=== PATIENT | female | born 2000 | race Caucasian/White ===

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

== ENCOUNTER → 2019-03-14 | Outpatient (CLI) | payer OTHER ==
[2019-03-14 13:26] LABS: HCT 40.6 % (34.0-46.0); HGB 13.3 gm/dL (11.4-16.0); MCHC 32.6 g/dL (31.0-37.0); MCV 97.9 fL (80.0-100.0); Mean Platelet Volume 7.7; Platelet Count 267 k/uL (150-450); RBC 4.15 m/uL (3.80-5.40); RDW 12.3 % (11.5-15.5); WBC 8.8 k/uL (4.0-11.0)
--- NOTE | 2019-03-14 13:26 | US ---
EXAMINATION TYPE: US pelvic complete DATE OF EXAM: 03/14/2019 COMPARISON: US CLINICAL HISTORY: N92.1 excessive and frequent menstruation with. Pt states abnormal, heavy and frequ ent vaginal bleeding TECHNIQUE: Transabdominal (TA). Transabdominal sonographic images of the pelvis were acquired. Date of LMP: 03/11/2019 EXAM MEASUREMENTS: Uterus: 8.6 x 3.9 x 4.0 cm Endometrial Stripe: 0.4 cm Right Ovary: 3.0 x 2.8 x 1.6 cm Left Ovary: 3.0 x 3.7 x 1.8 cm 1. Uterus: Anteverted wnl 2. Endometrium: wnl 3. Right Ovary: wnl 4. Left Ovary: Dominant follicle= 1.7 cm 5. Bilateral Adnexa: wnl 6. Posterior cul-de-sac: wnl IMPRESSION: 1. 1.7 cm left ovarian cyst.
[2019-03-14 13:51] LABS: T4, Free (Free Thyroxine) 1.22 ng/dL (0.78-2.19)
== END | disposition home or self-care (01) ==
LOC: RADUSWWP 12:28
PROVIDERS: ATTEND Obstetrics & Gynecology
DX: N83.202 Unspecified ovarian cyst, left side (principal); Z13.29 Encounter for screening for other suspected endocrine disorder; N92.1 Excessive and frequent menstruation with irregular cycle
CPT/HCPCS: 36415; 76856; 84439; 84443; 84479; 85027

== ENCOUNTER 2019-03-15 17:11 | Emergency (ER) | payer OTHER ==
[2019-03-15 17:17] VITALS: BP 103/62; PULSE 76; RESP 20; TEMP 98.2
[2019-03-15] MEDS ORDERED: traMADol 50 MG TAB PO STA (18:00)
--- NOTE | 2019-03-15 18:02 | ED ---
ENT HPI - General Chief complaint: Dental/Oral Stated complaint: Dental pain Time Seen by Provider: 03/15/19 17:28 Source: patient Mode of arrival: ambulatory Limitations: no limitations - History of Present Illness Initial comments: Patient is a 18-year-old female presenting to emergency Department with a chief complaint of dental pain. Patient reports yesterday she was using whitening strips that she was supposed to keep on for 30 minutes. However, she fell asleep and they were on for approximately 10 hours. Patient reports after she removes them she developed dental pain that is exacerbated whenever she is taking a breath. Patient also reports some pain whenever she is drinking cold or hot liquids. Patient reports taking [id number] ibuprofen with minimal improvement. Patient states she went to the primary care office who prescribed her tramadol but she has not picked it up from the pharmacy. Patient reports that she has an appointment scheduled with a dentist. - Related Data Home Medications Medication Instructions Recorded Confirmed Pnv No.95/Ferrous Fum/Folic AC 1 tab PO HS 11/10/17 03/30/18 [ Multivitamin Tablet] Previous Rx's Medication Instructions Recorded Oseltamivir [Tamiflu] 75 mg PO Q12HR #10 cap 05/06/18 Cephalexin [Keflex] 500 mg PO Q12HR 10 Days cap 07/04/18 Allergies Allergy/AdvReac Type Severity Reaction Status Date / Time codeine AdvReac Abdominal Verified 03/15/19 17:18 Pain Review of Systems ROS Statement: Those systems with pertinent positive or pertinent negative responses have been documented in the HPI. ROS Other: All systems not noted in ROS Statement are negative. Past Medical History Past Medical History: No Reported History History of Any Multi-Drug Resistant Organisms: None Reported Past Surgical History: Section Additional Past Surgical History / Comment(s): WISDOM TEETH, STATES HAD "DRAINAGE OF TONSIL" Past Anesthesia/Blood Transfusion Reactions: No Reported Reaction Past Psychological History: Depression Smoking Status: Current every day smoker Past Alcohol Use History: None Reported Past Drug Use History: None Reported General Exam Limitations: no limitations General appearance: alert, in no apparent distress Head exam: Present: atraumatic, normocephalic, normal inspection Eye exam: Present: normal appearance, PERRL, EOMI Pupils: Present: normal accommodation ENT exam: Present: normal exam, normal oropharynx (No oral lesions. No signs of a dental infection.), mucous membranes moist, TM's normal bilaterally, normal external ear exam Neck exam: Present: normal inspection, full ROM Respiratory exam: Present: normal lung sounds bilaterally Cardiovascular Exam: Present: regular rate, normal rhythm, normal heart sounds Extremities exam: Present: normal inspection, full ROM Back exam: Present: normal inspection, full ROM Neurological exam: Present: alert, oriented X3 Psychiatric exam: Present: normal affect, normal mood Skin exam: Present: warm, dry, intact, normal color Course Vital Signs 03/15/19 17:14 Temperature 98.2 F Pulse Rate 76 Respiratory 20 Rate Blood Pressure 103/62 O2 Sat by Pulse 99 Oximetry Medical Decision Making - Medical Decision Making Patient is a 18-year-old female presenting to emergency Department with chief complaint of dental pain. Physical examination is unremarkable. Patient given a single dose of tramadol in the ED. Patient has a prescription for tramadol that she has not picked up yet. Patient also advised to use Sensodyne toothpaste for sensitive teeth. Strict return parameters were thoroughly discussed the patient was understanding and agreeable. Case discussed with physician. Disposition Clinical Impression: Pain, dental Disposition: HOME SELF-CARE Condition: Stable Instructions (If sedation given, give patient instructions): Toothache (ED) Additional Instructions: Please follow up with a dentist. use [id number] Sensodyne. Please return to emergency department if symptoms worsen. Is patient prescribed a controlled substance at d/c from ED?: No Referrals: Waqas See MD [Primary Care Provider] - 1-2 days Time of Disposition: 18:02
== END 2019-03-15 18:21 | disposition home or self-care (01) ==
LOC: EC 17:11
DX: K08.89 Other specified disorders of teeth and supporting structures (principal); F17.200 Nicotine dependence, unspecified, uncomplicated; Z88.5 Allergy status to narcotic agent
CPT/HCPCS: 99282

== ENCOUNTER 2019-11-17 16:17 | Emergency (ER) | payer OTHER ==
[2019-11-17] MEDS ORDERED: NA PHOS,M-B/NA PHOS,DI-BA 133 ML ENEMA RECTAL STA (17:01)
--- NOTE | 2019-11-17 17:03 | ED ---
Abdominal Pain HPI - General Chief Complaint: Abdominal Pain Stated Complaint: Female Time Seen by Provider: 11/17/19 16:32 Source: patient Mode of arrival: ambulatory Limitations: no limitations - History of Present Illness Initial Comments: Patient is a 19-year-old female presenting to the emergency Department with complaints of constipation for the last 3 days. Patient states she was trying to disimpact herself and thinks she might have cut herself with her long nails. Patient states when she tried to have a bowel movement about a half an hour later she noticed a little bit of blood in the toilet. Patient got concerned and went to urgent care. Urgent care stating that she needed to the ER for further evaluation. She states she takes Percocets and typically deals with constipation. She states she is not having active bleeding, she has some little bit of soreness but no significant amount of pain. Denies any fevers or chills. She has no further complaints at this time. - Related Data Home Medications Medication Instructions Recorded Confirmed Pnv No.95/Ferrous Fum/Folic AC 1 tab PO HS 11/10/17 03/30/18 [ Multivitamin Tablet] Previous Rx's Medication Instructions Recorded Oseltamivir [Tamiflu] 75 mg PO Q12HR #10 cap 05/06/18 Cephalexin [Keflex] 500 mg PO Q12HR 10 Days cap 07/04/18 Allergies Allergy/AdvReac Type Severity Reaction Status Date / Time codeine AdvReac Abdominal Verified 11/17/19 16:26 Pain Review of Systems ROS Statement: Those systems with pertinent positive or pertinent negative responses have been documented in the HPI. ROS Other: All systems not noted in ROS Statement are negative. Past Medical History Past Medical History: No Reported History History of Any Multi-Drug Resistant Organisms: None Reported Past Surgical History: Section Additional Past Surgical History / Comment(s): WISDOM TEETH, STATES HAD "DRAINAGE OF TONSIL" Past Anesthesia/Blood Transfusion Reactions: No Reported Reaction Past Psychological History: Depression Smoking Status: Current every day smoker Past Alcohol Use History: None Reported Past Drug Use History: Prescription Drug Abuse General Exam - General Exam Comments Initial Comments: GENERAL: Patient is well-developed and well-nourished. Patient is nontoxic and in no acute distress. HEAD: Atraumatic, normocephalic. EYES: Pupils equal round and reactive to light, extraocular movements intact, sclera anicteric, conjunctiva are normal. Eyelids were unremarkable. ENT: TMs normal, nares patent, oropharynx clear without exudates. Moist mucous membranes. NECK: Normal range of motion, supple without lymphadenopathy or JVD. LUNGS: Unlabored respirations. Breath sounds clear to auscultation bilaterally and equal. No wheezes rales or rhonchi. HEART: Regular rate and rhythm without murmurs, rubs or gallops. ABDOMEN: Soft, nontender, normoactive bowel sounds. No guarding, no rebound. No masses appreciated. MUSCULOSKELETAL: Normal extremities with adequate strength and normal range of motion, no pitting or edema. No clubbing or cyanosis. NEUROLOGICAL: Patient is alert and oriented x 3. Motor and sensory are also intact. Cranial nerves II through XII grossly intact. Symmetrical smile. Normal speech, normal gait. PSYCH: Normal mood, normal affect. SKIN: Warm, Dry, normal turgor, no rashes or lesions noted. Limitations: no limitations Rectal exam: Present: normal inspection, hemorrhoids (Small external hemorrhoid), other (No active bleeding.) Course Vital Signs 11/17/19 11/17/19 16:22 17:17 Temperature 98.2 F 98.3 F Pulse Rate 18 L 88 Respiratory 112 H 16 Rate Blood Pressure 119/81 115/70 O2 Sat by Pulse 99 100 Oximetry Medical Decision Making - Medical Decision Making Patient is a 19-year-old female here for constipation as well as cutting herself with her nail as she was trying to disimpact herself. On exam, she has no active bleeding. She has a very minimal pain. Patient takes Percocets and does have an issue with chronic constipation. We had a discussion about taking MiraLAX daily to help regulate her bowels. We also did discussion about using an enema at home. I will prescribe her an enema to take home. She will continue to increase her water intake. She is follow-up with her PCP. Return parameters were discussed with the patient she verbalized understanding. Disposition Clinical Impression: Constipation, External hemorrhoid Disposition: HOME SELF-CARE Condition: Stable Instructions (If sedation given, give patient instructions): Constipation (ED) Additional Instructions: Please return to the Emergency Department if symptoms worsen or any other concerns. Recommend taking MiraLAX daily for constipation. Increase water intake. Trial of an enema at home for acute constipation. Follow-up with PCP. Is patient prescribed a controlled substance at d/c from ED?: No Referrals: Waqas See MD [Primary Care Provider] - 1-2 days
[2019-11-17 17:18] VITALS: BP 115/70; PULSE 88; RESP 16; TEMP 98.3
== END 2019-11-17 17:17 | disposition home or self-care (01) ==
LOC: EC 16:17
DX: K64.4 Residual hemorrhoidal skin tags (principal); K59.09 Other constipation; F17.200 Nicotine dependence, unspecified, uncomplicated; Z88.5 Allergy status to narcotic agent
CPT/HCPCS: 99283

== ENCOUNTER 2020-04-07 06:41 | Emergency (ER) | payer OTHER ==
[2020-04-07 07:00] VITALS: BP 114/75; PULSE 87; RESP 16; TEMP 98.7
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
== END 2020-04-07 07:36 | disposition home or self-care (01) ==
LOC: EC 06:41
DX: S09.90XA Unspecified injury of head, initial encounter (principal); Z88.5 Allergy status to narcotic agent; Y04.0XXA Assault by unarmed brawl or fight, initial encounter
CPT/HCPCS: 99283

== ENCOUNTER 2021-01-25 05:09 | Emergency (ER) | payer OTHER ==
[2021-01-25] MEDS ORDERED: SODIUM CHLORIDE 0.9% 1,000 ML IV ONE (05:34)
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
[2021-01-25 06:01] VITALS: TEMP 98.8
[2021-01-25 06:04] LABS: Basophils % (A) 0 %; Eosinophils # (A) 0.3 k/uL (0-0.7); Eosinophils % (A) 2 %; HCT 36.1 % (34.0-46.0); HGB 11.9 gm/dL (11.4-16.0); Lymphocytes # (A) 1.5 k/uL (1.0-4.8); Lymphocytes % (A) 10 %; MCH 28.6 pg (25.0-35.0); MCHC 33.1 g/dL (31.0-37.0); MCV 86.5 fL (80.0-100.0); Monocytes # (A) 0.5 k/uL (0-1.0); Monocytes % (A) 4 %; Neutrophils # (A) 11.9 k/uL (1.3-7.7); Neutrophils % (A) 83 %; Platelet Count 294 k/uL (150-450); RBC 4.18 m/uL (3.80-5.40); RDW 14.3 % (11.5-15.5); WBC 14.3 k/uL (3.8-10.6)
[2021-01-25 06:15] LABS: ALT 16 U/L (4-34); AST 26 U/L (14-36); African American GFR (CKD) >90 (>60 ml/min/1.73 sqM); Albumin 4.6 g/dL (3.5-5.0); Alkaline Phosphatase 51 U/L (38-126); Anion Gap 9 mmol/L; Blood Urea Nitrogen 10 mg/dL (7-17); Calcium 9.9 mg/dL (8.4-10.2); Carbon Dioxide 21 mmol/L (22-30); Chloride 107 mmol/L (98-107); Glucose 94 mg/dL (74-99); Non-African American GFR(CKD) >90 (>60 ml/min/1.73 sqM); Potassium 4.1 mmol/L (3.5-5.1); Sodium 137 mmol/L (137-145); Total Bilirubin 0.2 mg/dL (0.2-1.3); Total Protein 8.1 g/dL (6.3-8.2)
[2021-01-25 06:31] LABS: Amorphous Sediment,Urine Rare /hpf; Appearance,Urine Clear (Clear); Bilirubin,Urine Negative (Negative); Blood,Urine Large (Negative); Color,Urine Light Yellow; Glucose,Urine (UA) Negative (Negative); Hyaline Casts,Urine 4 /lpf (0-2); Ketones,Urine Negative (Negative); Leukocyte Esterase,Urine Negative (Negative); Mucus,Urine Rare /hpf; Nitrite,Urine Negative (Negative); PH, Urine 5.5 (5.0-8.0); Protein,Urine Negative (Negative); RBC,Urine 10 /hpf (0-5); Specific Gravity,Urine 1.007 (1.001-1.035); Squamous Epithelial Cell,Urine 1 /hpf (0-4); Urobilinogen,Urine <2.0 mg/dL (<2.0); WBC,Urine 1 /hpf (0-5)
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
[2021-01-25 09:30] VITALS: BP 116/75; PULSE 82; RESP 16
[2021-01-26 14:24] LABS: C. trachomatis,PCR Negative (Neg,Equiv); Chlamydia trachomatis Source Urine; N. gonorrhoeae,PCR Negative (Neg,Equiv); Neisseria Source Urine
== END 2021-01-25 09:29 | disposition home or self-care (01) ==
LOC: EC 05:09
DX: T74.11XA Adult physical abuse, confirmed, initial encounter (principal); J45.909 Unspecified asthma, uncomplicated; F32.A Depression, unspecified; F43.12 Post-traumatic stress disorder, chronic; F17.200 Nicotine dependence, unspecified, uncomplicated; Z88.5 Allergy status to narcotic agent; Z88.6 Allergy status to analgesic agent; Y04.8XXA Assault by other bodily force, initial encounter
CPT/HCPCS: 99284; 96360; 96361; 36415; 80053; 85025; 81001; 81025; 87491; 87591; 70496; 70498; Q9967

== ENCOUNTER → 2021-01-30 | Outpatient (CLI) | payer OTHER ==
--- NOTE | 2021-01-30 18:02 | CT ---
EXAMINATION TYPE: CT chest wo con DATE OF EXAM: 01/30/2021 COMPARISON: 02/20/2018 HISTORY: thymus mass CT DLP: 308.7 mGycm High-resolution noncontrast CT of the chest was performed with the patient in the prone and supine po sitions. Lung and mediastinal window settings are submitted. The lungs appear to be well-aerated. I do not see evidence for fibrotic change. There is no eviden ce for bronchiectasis, groundglass infiltrate, nodule or mass. No pleural effusion is identified. Pe rsistent soft tissue fullness within the anterior mediastinum is poorly evaluated on high-resolution CT of the chest. In addition the examination is done without contrast. IMPRESSION: 1.Persistent soft tissue fullness within the anterior mediastinum is poorly evaluated on high-resolut ion CT of the chest. In addition the examination is done without contrast. This likely reflects the t hymus in a 20year-old patient. Consider CT of the chest with contrast if felt clinically indicated.
== END | disposition home or self-care (01) ==
LOC: RADCTMAIN 17:10
PROVIDERS: ATTEND Internal Medicine
DX: R22.2 Localized swelling, mass and lump, trunk (principal)
CPT/HCPCS: 71250

== ENCOUNTER → 2021-02-09 | Outpatient (CLI) | payer OTHER ==
[2021-02-10 00:22] LABS: HIV 2 AB Non-Reactive (Non-Reactive); HIV AB P24 Non-Reactive (Non-Reactive); HIV P24 AG Non-Reactive (Non-Reactive)
[2021-02-10 15:11] LABS: C. trachomatis,PCR Negative (Neg,Equiv); Chlamydia trachomatis Source Urine; N. gonorrhoeae,PCR Negative (Neg,Equiv); Neisseria Source Urine
== END | disposition home or self-care (01) ==
LOC: LABWHC1 14:36
PROVIDERS: ATTEND Internal Medicine
DX: Z20.2 Contact with and (suspected) exposure to infections with a predominantly sexual mode of transmission (principal)
CPT/HCPCS: 36415; 86780; 87390; 87491; 87591

== ENCOUNTER → 2021-02-20 | Outpatient (CLI) | payer OTHER ==
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
== END | disposition home or self-care (01) ==
LOC: RADCTMAIN 11:58
PROVIDERS: ATTEND Internal Medicine
DX: R22.2 Localized swelling, mass and lump, trunk (principal)
CPT/HCPCS: 71260

== ENCOUNTER → 2021-11-05 | Outpatient (CLI) | payer OTHER ==
--- NOTE | 2021-11-05 19:09 | US ---
EXAMINATION TYPE: US transvaginal DATE OF EXAM: 11/05/2021 COMPARISON: NONE CLINICAL HISTORY: 21-year-old female N92.6 IRREGULAR MENSTRUATION. Irregularly spaced cycles for 3 mo nths. TECHNIQUE: Transvaginal (TV). Date of LMP: 10/02/2021 FINDINGS: EXAM MEASUREMENTS: Uterus: 8.8 x 4.2 x 5.1 cm Endometrial Stripe: 0.80 cm Right Ovary: 4.6 x 3.0 x 3.8 cm Left Ovary: 2.7 x 2.1 x 2.6 cm 1. Uterus: Anteverted and otherwise wnl 2. Endometrium: wnl 3. Right Ovary: Complex cystic mass with internal reticulations measuring 3.4 x 2.2 x 2.8 cm. There is no internal vascularity. 4. Left Ovary: Normal follicular change. 5. Bilateral Adnexa: wnl 6. Posterior cul-de-sac: wnl IMPRESSION: 1. A cystic lesion measuring 3.4 cm within the right ovary shows internal reticulations. No associate d vascularity. Findings suspected to represent a hemorrhagic cyst. Follow-up in 6-8 weeks to ensure i nvolution. 2. Endometrial stripe normal at 8 mm.
== END | disposition home or self-care (01) ==
LOC: RADUSWWP 13:43
PROVIDERS: ATTEND Family Medicine
DX: N83.201 Unspecified ovarian cyst, right side (principal)
CPT/HCPCS: 76830

== ENCOUNTER 2022-02-14 23:00 | Emergency (ER) | payer OTHER ==
--- NOTE | 2022-02-14 23:48 | ED ---
General Adult HPI - General Chief complaint: Chest Pain Stated complaint: Chest Pain, Palpitations Time Seen by Provider: 02/14/22 23:09 Source: patient, RN notes reviewed Mode of arrival: ambulatory Limitations: no limitations - History of Present Illness Initial comments: 21-year-old female presents to the emergency department for evaluation of chest discomfort. Patient states she has the sensation of her heart pounding causing a vague discomfort across her chest. Complains of feeling restless and anxious. Worried about her high cholesterol States she drinks caffeine daily, but has not increased the amount recently. Recently received a steroid injection for a stye. Denies increased stress, headache, dizziness, cough, shortness of breath, abdo kerry pain, nausea, vomiting, diarrhea, and dysuria. - Related Data Home Medications Medication Instructions Recorded Confirmed Pnv No.95/Ferrous Fum/Folic AC 1 tab PO HS 11/10/17 03/30/18 [ Multivitamin Tablet] Previous Rx's Medication Instructions Recorded Oseltamivir [Tamiflu] 75 mg PO Q12HR #10 cap 05/06/18 Cephalexin [Keflex] 500 mg PO Q12HR 10 Days cap 07/04/18 Allergies Allergy/AdvReac Type Severity Reaction Status Date / Time Disney And Derivatives Allergy Rash/Hives Verified 02/14/22 23:07 [Disney] codeine AdvReac Abdominal Verified 02/14/22 23:07 Pain ibuprofen AdvReac Abdominal Verified 02/14/22 23:07 Pain metronidazole [From Flagyl] AdvReac Unknown Verified 02/14/22 23:07 Review of Systems ROS Statement: Those systems with pertinent positive or pertinent negative responses have been documented in the HPI. ROS Other: All systems not noted in ROS Statement are negative. Past Medical History Past Medical History: Asthma, Hyperlipidemia Additional Past Medical History / Comment(s): previous opiate abuse History of Any Multi-Drug Resistant Organisms: None Reported Past Surgical History: Section Additional Past Surgical History / Comment(s): WISDOM TEETH, STATES HAD "DRAINAGE OF TONSIL" Past Anesthesia/Blood Transfusion Reactions: No Reported Reaction Past Psychological History: Depression, Panic Disorder, PTSD Smoking Status: Current every day smoker, Vaper Past Alcohol Use History: Occasional Past Drug Use History: Opiates General Exam Limitations: no limitations General appearance: alert, in no apparent distress ENT exam: Present: normal exam, mucous membranes moist Respiratory exam: Present: normal lung sounds bilaterally. Absent: respiratory distress, wheezes, rales, rhonchi, stridor Cardiovascular Exam: Present: regular rate, normal rhythm, normal heart sounds. Absent: systolic murmur, diastolic murmur, rubs, gallop, clicks GI/Abdominal exam: Present: soft, normal bowel sounds. Absent: distended, tenderness, guarding, rebound, rigid Neurological exam: Present: alert, oriented X3, CN II-XII intact Psychiatric exam: Present: flat affect Skin exam: Present: warm, dry, intact, normal color. Absent: rash Course Vital Signs 02/14/22 02/15/22 23:03 01:54 Temperature 98.5 F 98.4 F Pulse Rate 105 H 72 Respiratory 18 16 Rate Blood Pressure 133/77 122/88 O2 Sat by Pulse 97 98 Oximetry - Reevaluation(s) Reevaluation #1: 02/15/22 01:30 Upon reevaluation, patient is resting comfortably and no acute distress. She is reassured by findings. Discussed minimizing caffeine and sugar intake as likely her symptoms are side effect of recent steroid injection. Medical Decision Making - Medical Decision Making This is a 21-year-old female who presents to the emergency Department with complaints of palpitations and vague chest discomfort. Upon exam, patient is well-appearing and in no acute distress, though she is anxious. EKG was obtained and shows normal sinus rhythm with no ectopy. No ectopy visualized while on cardiac monitoring. Lung sounds are clear to auscultation. Laboratory studies were obtained showing a negative troponin and glucose 155. Patient was recently treated for a stye on the left eye with a steroid injection. States she has consumed a large amount of sweet treats as well. We talked at length about possible contributors for chest pain and palpitations aside from those that are cardiac as her EKG and troponin were both negative. Discussed anxiety as a possible cause. Though she could not identified any stressors or triggers, it is possible that steroid injection and hyperglycemia could be causing her restlessness and discomfort. She is encouraged to avoid sugary intake and increase water. Caution on use of caffeine. Instructed to follow up with PCP for further evaluation and treatment. Return parameters were discussed in detail. Patient verbalizes understanding and agrees with this plan. Attending: Bo. - Lab Data Result diagrams: 02/15/22 00:06 02/15/22 00:06 Lab Results 02/15/22 02/15/22 02/15/22 Range/Units 00:06 00:06 00:06 WBC 9.8 (3.8-10.6) k/uL RBC 4.28 (3.80-5.40) m/uL Hgb 13.6 (11.4-16.0) gm/dL Hct 39.8 (34.0-46.0) % MCV 92.9 (80.0-100.0) fL MCH 31.7 (25.0-35.0) pg MCHC 34.1 (31.0-37.0) g/dL RDW 12.5 (11.5-15.5) % Plt Count 291 (150-450) k/uL MPV 8.5 Neutrophils % 94 % Lymphocytes % 5 % Monocytes % 1 % Eosinophils % 0 % Basophils % 0 % Neutrophils # 9.2 H (1.3-7.7) k/uL Lymphocytes # 0.5 L (1.0-4.8) k/uL Monocytes # 0.1 (0-1.0) k/uL Eosinophils # 0.0 (0-0.7) k/uL Basophils # 0.0 (0-0.2) k/uL Sodium 139 (137-145) mmol/L Potassium 4.1 (3.5-5.1) mmol/L Chloride 107 (98-107) mmol/L Carbon Dioxide 24 (22-30) mmol/L Anion Gap 8 mmol/L BUN 18 H (7-17) mg/dL Creatinine 0.66 (0.52-1.04) mg/dL Est GFR (CKD-EPI)AfAm >90 (>60 ml/min/1.73 sqM) Est GFR (CKD-EPI)NonAf >90 (>60 ml/min/1.73 sqM) Glucose 155 H (74-99) mg/dL Calcium 10.8 H (8.4-10.2) mg/dL Total Bilirubin 0.2 (0.2-1.3) mg/dL AST 30 (14-36) U/L ALT 22 (4-34) U/L Alkaline Phosphatase 69 (38-126) U/L Troponin I <0.012 (0.000-0.034) ng/mL Total Protein 7.8 (6.3-8.2) g/dL Albumin 4.5 (3.5-5.0) g/dL - EKG Data -: EKG Interpreted by Me EKG shows normal: sinus rhythm Rate: normal EKG Comments: EKG obtained at 2315 shows sinus rhythm with marked sinus arrhythmia short WA interval. Ventricular rate 73, WA interval 110, QRS duration 92, QT/QTC 364/385. Interpretation borderline ECG. I see no evidence of acute ischemic changes, ST segment changes, or ectopy Disposition Clinical Impression: Palpitations Disposition: HOME SELF-CARE Condition: Stable Instructions (If sedation given, give patient instructions): Heart Palpitations (ED) Additional Instructions: Increase fluids. Minimize caffeine and sugar intake. Reduce stress. Follow-up with PCP for recheck as needed. Return to the emergency department with any new, worsening, or concerning symptoms. Is patient prescribed a controlled substance at d/c from ED?: No Referrals: None,Stated [Primary Care Provider] - 1-2 days Time of Disposition: 01:42
[2022-02-15 00:26] LABS: Basophils % (A) 0 %; Eosinophils % (A) 0 %; HCT 39.8 % (34.0-46.0); HGB 13.6 gm/dL (11.4-16.0); Lymphocytes # (A) 0.5 k/uL (1.0-4.8); Lymphocytes % (A) 5 %; MCH 31.7 pg (25.0-35.0); MCHC 34.1 g/dL (31.0-37.0); MCV 92.9 fL (80.0-100.0); Mean Platelet Volume 8.5; Monocytes # (A) 0.1 k/uL (0-1.0); Monocytes % (A) 1 %; Neutrophils # (A) 9.2 k/uL (1.3-7.7); Neutrophils % (A) 94 %; Platelet Count 291 k/uL (150-450); RBC 4.28 m/uL (3.80-5.40); RDW 12.5 % (11.5-15.5); WBC 9.8 k/uL (3.8-10.6)
[2022-02-15 00:42] LABS: ALT 22 U/L (4-34); AST 30 U/L (14-36); African American GFR (CKD) >90 (>60 ml/min/1.73 sqM); Albumin 4.5 g/dL (3.5-5.0); Alkaline Phosphatase 69 U/L (38-126); Anion Gap 8 mmol/L; Blood Urea Nitrogen 18 mg/dL (7-17); Calcium 10.8 mg/dL (8.4-10.2); Carbon Dioxide 24 mmol/L (22-30); Chloride 107 mmol/L (98-107); Glucose 155 mg/dL (74-99); Non-African American GFR(CKD) >90 (>60 ml/min/1.73 sqM); Potassium 4.1 mmol/L (3.5-5.1); Sodium 139 mmol/L (137-145); Total Bilirubin 0.2 mg/dL (0.2-1.3); Total Protein 7.8 g/dL (6.3-8.2)
[2022-02-15 01:55] VITALS: BP 122/88; PULSE 72; RESP 16; TEMP 98.4
== END 2022-02-15 01:54 | disposition home or self-care (01) ==
LOC: EC 23:00
DX: R00.2 Palpitations (principal); J45.909 Unspecified asthma, uncomplicated; F32.A Depression, unspecified; F17.290 Nicotine dependence, other tobacco product, uncomplicated; Z88.5 Allergy status to narcotic agent; Z88.6 Allergy status to analgesic agent; Z88.1 Allergy status to other antibiotic agents; Z91.018 Allergy to other foods
CPT/HCPCS: 36415; 80053; 84484; 85025; 93005; 99285